=== PATIENT | female | born 1995 | race African-American/Black ===

== ENCOUNTER 2021-06-14 16:58 | Emergency (ER) | payer OTHER ==
[~2021-06-14] VITALS: Ht 162.6 cm; Wt 62.3 kg
[2021-06-14] MEDS ORDERED: KETOROLAC 30 MG/ML 1ML VIAL IV ONE (17:25)
[2021-06-14 17:53] LABS: BASO % 0.7 % (0.0-1.0); EOS # 0.2 10^3/uL (0.0-0.5); EOS % 3.9 % (0.0-3.0); HEMOGLOBIN 12.2 g/dl (12.0-15.5); LYMPH # 2.1 10^3/uL (1.5-5.0); LYMPH % 45.3 % (24.0-44.0); MEAN CORPUSCULAR HEMOGLOBIN 26.5 pg (27.0-33.0); MEAN CORPUSCULAR HGB CONC 32.1 g/dl (32.0-36.5); MEAN CORPUSCULAR VOLUME 82.4 fl (80.0-96.0); MONO # 0.3 10^3/uL (0.0-0.8); MONO % 7.2 % (2.0-8.0); NEUTROPHILS % 42.7 % (36.0-66.0); PLATELET COUNT, AUTOMATED 296 10^3/uL (150-450); RED BLOOD COUNT 4.61 10^6/uL (4.00-5.40); WHITE BLOOD COUNT 4.6 10^3/uL (4.0-10.0)
[2021-06-14 18:06] LABS: INR 1.11; PROTHROMBIN TIME 14.7 SECONDS (12.7-14.5)
[2021-06-14 18:07] LABS: PARTIAL THROMBOPLASTIN TIME 30.1 SECONDS (25.9-37.0)
[2021-06-14 18:11] VITALS: BP 128/63
[2021-06-14 18:27] LABS: BLOOD UREA NITROGEN 11 MG/DL (7-18); CALCIUM LEVEL 8.7 MG/DL (8.5-10.1); CARBON DIOXIDE LEVEL 29 MEQ/L (21-32); CHLORIDE LEVEL 105 MEQ/L (98-107); CREATININE FOR GFR 0.82 MG/DL (0.55-1.30); GLOMERULAR FILTRATION RATE > 60.0 (>60); GLUCOSE, FASTING 109 MG/DL (70-100); POTASSIUM SERUM 3.9 MEQ/L (3.5-5.1); SODIUM LEVEL 139 MEQ/L (136-145)
[2021-06-14] MEDS ORDERED: NS 1,000 ML IV ONE (19:05)
[2021-06-14] MEDS ORDERED: IBUP80TA PO (20:45)
== END 2021-06-14 21:02 | disposition home or self-care (01) ==
LOC: M ED 16:58
DX: N92.0 Excessive and frequent menstruation with regular cycle (principal)
CPT/HCPCS: 76830; 76856; 80048; 84702; 85025; 85610; 85730; 86850; 86900; 86901; 93976; 96374; 99284; J1885

== ENCOUNTER 2021-08-21 05:48 | Emergency (ER) | payer OTHER ==
[~2021-08-21] VITALS: Ht 162.6 cm; Wt 63.5 kg
[~2021-08-21 05:48] MED LIST: IBUP80TA PO
[2021-08-21] MEDS ORDERED: AZEL1SPR3 NARES (08:04)
[2021-08-21] MEDS ORDERED: KETO10TAB PO (08:04)
[2021-08-21] MEDS ORDERED: KETOROLAC TROMETHAMINE 10 MG TAB PO ONE (08:30)
[2021-08-21 08:59] VITALS: BP 125/78
== END 2021-08-21 09:00 | disposition home or self-care (01) ==
LOC: M ED 05:48
DX: H92.01 Otalgia, right ear (principal)

== ENCOUNTER 2022-04-30 18:42 | Emergency (ER) | payer OTHER ==
[~2022-04-30] VITALS: Ht 162.6 cm; Wt 68.7 kg
[~2022-04-30 18:42] MED LIST changes: +AZEL1SPR3 NARES; +KETO10TAB PO
[2022-04-30 19:55] LABS: BASO % 0.4 % (0.0-1.0); EOS # 0.2 10^3/uL (0.0-0.5); EOS % 3.2 % (0.0-3.0); HEMATOCRIT 38.6 % (36.0-47.0); LYMPH # 2.3 10^3/uL (1.5-5.0); LYMPH % 45.4 % (24.0-44.0); MEAN CORPUSCULAR HEMOGLOBIN 25.7 pg (27.0-33.0); MEAN CORPUSCULAR HGB CONC 31.1 g/dl (32.0-36.5); MEAN CORPUSCULAR VOLUME 82.7 fl (80.0-96.0); MONO # 0.4 10^3/uL (0.0-0.8); MONO % 8.6 % (2.0-8.0); NEUTROPHILS # 2.1 10^3/uL (1.5-8.5); NEUTROPHILS % 42.2 % (36.0-66.0); PLATELET COUNT, AUTOMATED 306 10^3/uL (150-450); RED BLOOD COUNT 4.67 10^6/uL (4.00-5.40)
[2022-04-30 20:25] LABS: CK-MB VALUE MASS < 1.0 NG/ML (<3.6)
[2022-04-30 20:39] LABS: BLOOD UREA NITROGEN 8 MG/DL (9-23); CALCIUM LEVEL 9.4 MG/DL (8.5-10.1); CARBON DIOXIDE LEVEL 29 MMOL/L (20-31); CHLORIDE LEVEL 103 MMOL/L (98-107); CPK CREATINE PHOSPHOKINASE 196 U/L (34-145); CREATININE FOR GFR 0.71 MG/DL (0.55-1.30); GLOMERULAR FILTRATION RATE > 60.0 (>60); GLUCOSE, FASTING 94 MG/DL (60-100); MB/CK RELATIVE INDEX 0.51 (< OR =4); SODIUM LEVEL 138 MMOL/L (136-145)
[2022-04-30 20:58] LABS: HCG, SERUM QUALITATIVE NEGATIVE (NEGATIVE)
[2022-04-30] MEDS ORDERED: KETOROLAC 30 MG/ML 1ML VIAL IV ONE (22:35)
[2022-04-30] MEDS ORDERED: ISOVUE-370 76% 100ML VIAL As Ordered ONE (22:54)
[2022-04-30] MEDS ORDERED: diphenhydrAMINE 50MG/ML VIAL IV ONE (22:55)
[2022-04-30] MEDS ORDERED: methylPREDNISolone 125MG 2ML VIAL IV ONE (22:55)
[2022-04-30] MEDS ORDERED: ONDANSETRON 4MG 2ML VIAL IV ONE (22:55)
[2022-05-01] MEDS ORDERED: CYCL-707 PO (00:14)
[2022-05-01] MEDS ORDERED: NAPR-837 PO (00:14)
[2022-05-01 00:24] VITALS: BP 133/82
== END 2022-05-01 00:25 | disposition home or self-care (01) ==
LOC: M ED 18:42
DX: M50.10 Cervical disc disorder with radiculopathy, unspecified cervical region (principal); M79.602 Pain in left arm; R11.0 Nausea; R07.89 Other chest pain; G47.00 Insomnia, unspecified; M54.9 Dorsalgia, unspecified; Z91.013 Allergy to seafood
CPT/HCPCS: 71275; 72125; 80048; 82550; 82553; 84484; 84703; 85025; 93005; 96374; 96375; 99284; J1200; J1885; J2405; J2930

== ENCOUNTER → 2022-07-17 | Outpatient (REF) ==
[~2022-07-17] MED LIST changes: +CYCL-707 PO; +NAPR-837 PO
== END ==
LOC: M PLAIMG 12:20
PROVIDERS: ATTEND Internal Medicine
DX: Z00.00 Encounter for general adult medical examination without abnormal findings (principal)

== ENCOUNTER → 2022-08-07 | Outpatient (CLI) | payer OTHER | LOC: M SLEEP 19:16 | PROVIDERS: ATTEND Physician Assistant | DX: R40.0 Somnolence (principal) ==

== ENCOUNTER 2022-12-16 12:06 | Day surgery (SDC) | payer OTHER ==
[~2022-12-16] VITALS: Ht 162.6 cm; Wt 66.0 kg
[~2022-12-16 12:06] MED LIST changes: +ESZO1TAB4 PO; +NS 1,000 ML IV ONE
[2022-12-16] MEDS ORDERED: LIDOCAINE 2% 100MG/5ML SDV (FOR ANES.) As Ordered ONE (13:18)
[2022-12-16] MEDS ORDERED: propofoL 200 MG/20 ML VIAL As Ordered ONE (13:18)
[2022-12-16 14:38] VITALS: TEMP 97.4
[2022-12-16 14:56] VITALS: BP 145/87; O2SAT 100
== END 2022-12-16 15:09 | disposition home or self-care (01) ==
LOC: M OPP 12:06
PROVIDERS: ATTEND Internal Medicine Gastroenterology
DX: K59.04 Chronic idiopathic constipation (principal); K64.0 First degree hemorrhoids; Z91.013 Allergy to seafood; Z79.899 Other long term (current) drug therapy